=== PATIENT | male | born 2000 | race Two or more races ===

== ENCOUNTER 2025-01-18 04:38 | Emergency (ER) | payer MEDICAID, OTHER ==
[~2025-01-18] VITALS: Ht 175.3 cm; Wt 90.7 kg
[2025-01-18 04:49] VITALS: BP 155/95; PULSE 109; RESP 16; TEMP 97.8; O2SAT 99
--- NOTE | 2025-01-18 05:10 | ED.PDOC ---
Eye-HPI HPI Comments 25-year-old male who came to ER via EMS for eye problems. Symptoms started a year ago when cleaning solution splashed over patient's right eye. Since then patient's right eye has been blurred. Patient has a seen an eye doctor, and steroids and several eyedrops has been prescribed but no notable improvement of vision happened. Two weeks ago, patient lost peripheral vision over the right eye. And today, patient woke up with no vision over the right eye, seeing hazy shadows only, accompanied with headaches REVIEW OF SYSTEMS: General: No fever, no chills, or fatigue HEENT: No sore throat, no earache, no congestion, no neck pain. (+) vision loss right eye Cardiac: No chest pain. No palpitations. Lungs: No shortness of breath, no cough. GI: No nausea, no vomiting, no diarrhea, no constipation, no abdominal pain : No dysuria, frequency, or urgency. No hematuria. Musculoskeletal: No joint pain , no joint swelling, no extremity edema. Skin: No rash, no itching. Neuro: (+) headache, no dizziness, no weakness PHYSICAL EXAM: General: Awake, alert and oriented. No acute distress. Skin: Skin in warm, dry and intact without rashes or lesions. HEENT: The head is normocephalic and atraumatic. Conjunctivae are clear without exudates or hemorrhage. Sclera is non-icteric. Left pupil abnormally shaped. Bilateral pupils approximately 3 mm in diameter. Patient reports is able to see some light, shadows and movement in the right eye. Unable to measure IOP. Unable to visualize fundus. Neck: Normal range of motion. No JVD. Cardiac: Regular rate Respiratory: No signs of respiratory distress. No Stridor. Extremities: Upper and lower extremities are atraumatic in appearance without deformity. Neurological: The patient is awake, alert and oriented to person, place, and time with normal speech. Speech is clear. There is no facial asymmetry. Psychiatric: Appropriate mood and affect. Good judgement and insight. Chief Complaint: Eye Problem Time Seen by MD: 05:04 Reviewed Notes: Nurses Notes Information Source: Patient, Emergency Med Personnel Mode of Arrival: EMS Past Medical History PAST MEDICAL HISTORY: Denies Surgical History: Denies all surgeries Family History Family History: Reviewed,noncontributory to illness Social History Smoker: Non-Smoker Alcohol: Denies ETOH Use Drugs: Denies Drug Use Lives In: Home Was a procedure done? Was a procedure done?: No EENT DIFF Eye: Allergic, Bacterial, Corneal Abrasion, Corneal Ulceration X-Ray, Labs, Meds, VS Vital Signs Date Time Temp Pulse Resp B/P (MAP) Pulse Ox O2 Delivery O2 Flow Rate FiO2 01/18/25 04:49 97.8 109 16 155/95 99 97.8 Time of 1ST Reevaluation: 05:05 Reevaluation 1ST: Unchanged Patient Education/Counseling: Need For Follow Up Family Education/Counseling: No Family Present SEPSIS Sepsis Screen Date sepsis recognized/suspect: Jan 18, 2025 Time Sepsis recognized/suspect: 0452 Recent Procedure: No On Antibiotic Therapy: No Respiratory Rate >20: No Heart Rate >90: Yes Temp<36 C (96.8 F) or >38.3 C: No SBP <90 or MAP <65 mmHG: No New Acute Mental Status Change: No Is the patient on CPAP, BIPAP,: No Vital Signs Date Time Temp Pulse Resp B/P (MAP) Pulse Ox O2 Delivery O2 Flow Rate FiO2 01/18/25 04:49 97.8 109 16 155/95 99 97.8 Departure 1 Departure Time of Disposition: 05:45 Impression: Primary Impression: Eloped from emergency department Additional Impression: Vision loss Disposition: 07 LEFT AWOL/ELOPED Condition: Serious Critical Care Note Critical Care Time?: No Stability Stability form required: No I personally scribed for MEGHAN FROST MD ([email or web address]) on 01/18/25 at 05:10. Electronically submitted by Wilian Ochoa ([email or web address]). MEGHAN FROST MD Jan 18, 2025 05:10
== END 2025-01-18 05:42 | disposition left against medical advice (07) ==
LOC: ER 04:38 → EDBD 04:38 → ER 05:42
DX: H54.7 Unspecified visual loss (principal); Z79.899 Other long term (current) drug therapy